=== PATIENT | male | born 1945 | race Caucasian/White ===

== ENCOUNTER 2018-05-01 15:55 | Emergency (ER) | payer OTHER ==
[~2018-05-01] VITALS: Ht 172.7 cm; Wt 88.6 kg
[2018-05-01] MEDS ORDERED: FLOVENT DI250 MCG/BL IN (16:31)
[2018-05-01] MEDS ORDERED: VENTOLIN HFA IN (16:31)
[2018-05-01] MEDS ORDERED: TAMSULOSIN0.4 MG PO (16:32)
[2018-05-01] MEDS ORDERED: PROTONIX40 M2 PO (16:32)
[2018-05-01] MEDS ORDERED: NASONEX50 MCG/ACT NAB (16:32)
[2018-05-01] MEDS ORDERED: TRAVATAN Z0.004 % OU (16:33)
[2018-05-01] MEDS ORDERED: CRESTOR10 MG PO (16:33)
[2018-05-01] MEDS ORDERED: BETAMETHASONE V EX (16:36)
[2018-05-01] MEDS ORDERED: [UNRECOGNIZED DRUG - OTHER] EX (16:38)
[2018-05-01] MEDS ORDERED: [UNRECOGNIZED DRUG - OTHER] OU (16:40)
[2018-05-01 17:04] LABS: HEMATOCRIT 40.7 % (39.0-50.0); HEMOGLOBIN 13.7 g/dl (14.0-18.0); IMMATURE GRANULOCYTES 0.2 % (0.0-5.0); MEAN CELL VOLUME 91.7 fL CALC (80.0-100.0); MEAN CORPUSCULAR HGB 30.9 pG CALC (26.0-32.0); MEAN CORPUSCULAR HGB CONC 33.7 g/L CALC (32.0-36.0); NEUT# 5.7 thou/uL (1.82-7.42); RED BLOOD COUNT 4.44 mill/uL (4.70-6.10); RED CELL DISTRI WIDTH 11.4 % (11.5-15.5)
[2018-05-01 17:29] LABS: ALBUMIN 4.3 g/dL (3.2-5.0); ALKALINE PHOSPHATASE 92 u/l (38-126); ANION GAP 15 (6-22 (CALC)); BILIRUBIN, TOTAL 0.7 mg/dL (0.0-1.4); BUN 18 mg/dL (8-23); BUN/CREATININE RATIO 27 (12-20 (CALC)); CARBON DIOXIDE 26 mmol/l (22-30); CHLORIDE 105 mmol/l (95-108); CPK 54 u/l (52-200); CREATININE 0.7 mg/dL (0.7-1.3); GFR > 60 ML/MIN (>=60 (CALC)); GFR FOR AFR.AMER. > 60 ML/MIN (>=60 (CALC)); POTASSIUM 4.2 mmol/l (3.5-5.1); SGOT/AST 23 u/l (19-48); SODIUM 141 mmol/l (137-146); TOTAL PROTEIN 7.4 g/dL (6.3-8.2)
[2018-05-01] MEDS ORDERED: ZITHROMAX250 MG PO (18:24)
[2018-05-01] MEDS ORDERED: TORADOL PO (18:24)
[2018-05-01 18:31] VITALS: BP 149/74
== END 2018-05-01 18:31 | disposition home or self-care (01) | DRG 195 ==
LOC: ED 15:55
PROVIDERS: Emergency Medicine
DX: J10.1 Influenza due to other identified influenza virus with other respiratory manifestations (principal); J40 Bronchitis, not specified as acute or chronic; R05 Cough; M79.605 Pain in left leg; M79.604 Pain in right leg; M25.511 Pain in right shoulder